=== PATIENT | female | born 1930 | race Caucasian/White ===

== ENCOUNTER 2016-11-16 14:09 | Inpatient (IN) | payer MEDICARE, OTHER ==
[2016-11-16 15:53] LABS: Hematocrit 37 % (35-47); Hemoglobin 11.9 g/dl (12.0-16.0); Mean Corpuscular HGB Conc 32 g/dl (31-36); Mean Corpuscular Hemoglobin 29 pg (27-31); Mean Corpuscular Volume 91 fL (80-97); Mean Platelet Volume 7 um3 (7.4-10.4); Red Blood Count 4.08 10^6/ul (4.0-5.4); Red Cell Distribution Width 16 % (10.5-15); White Blood Count 6.5 10^3/ul (3.5-10.8)
[2016-11-16 16:08] LABS: Urine Bacteria Absent (Absent); Urine Bilirubin Negative (Negative); Urine Glucose Negative (Negative); Urine Nitrite Negative (Negative)
[2016-11-16 16:08] LABS: ALT 8 U/L (7-52); AST 15 U/L (13-39); Albumin 4.3 g/dL (3.2-5.2); Alkaline Phosphatase 104 U/L (34-104); Anion Gap 10 mmol/L (2-11); BUN/Creatinine Ratio 22.4 (8-20); Blood Urea Nitrogen 26 mg/dL (6-24); CO2 Carbon Dioxide 25 mmol/L (22-32); Calcium 9.7 mg/dL (8.6-10.3); Chloride 106 mmol/L (101-111); EGFR African American 56.8 (>60); EGFR Non-African American 44.2 (>60); Globulin 3.3 g/dL (2-4); Glucose 89 mg/dL (70-100); Potassium 4.3 mmol/L (3.5-5.0); Sodium 141 mmol/L (133-145); Total Protein 7.6 g/dL (6.4-8.9)
[2016-11-16 16:19] LABS: Benzodiazepine Urine Screen None Detected (None Detect)
[2016-11-16] MEDS ORDERED: ALPRAZolam TAB* 0.5 MG PO ONE (16:21)
[2016-11-16 16:25] LABS: Acetaminophen < 15 mcg/mL; Alcohol < 10 mg/dL (<10); Salicylate < 2.50 mg/dL (<30)
[2016-11-16 16:35] LABS: TSH (Thyroid Stimulating Horm) 3.94 mcIU/mL (0.34-5.60)
[2016-11-16] MEDS ORDERED: QUEtiapine TAB* 25 MG PO PRN (21:54)
[2016-11-16] MEDS ORDERED: LORazepam TAB(*) 1 MG ONE (22:06)
[2016-11-16] MEDS ORDERED: QUEtiapine TAB* 25 MG ONE (22:06)
[2016-11-16] MEDS ORDERED: LORazepam TAB(*) WAM SCALE 0-6 MG PO SCH (23:00)
[2016-11-16] MEDS ORDERED: LORazepam IM* PER WAM PARAMETERS IM SCH (23:00)
[2016-11-17] MEDS ORDERED: Acetaminophen TAB* 325 MG PO PRN (22:06)
[2016-11-17] MEDS ORDERED: Al Hydrox/Mg Hydrox/Simet LIQ* 30 ML UDC PO PRN (22:06)
[2016-11-17] MEDS: Mirtazapine TAB* 15 MG PO SCH (22:36)
[2016-11-18] MEDS: amLODIPine TAB* 5 MG PO SCH (08:02)
[2016-11-18] MEDS: Vitamin THERAPEUTIC TAB PO SCH (08:03)
[2016-11-18] MEDS: ESCITALOPRAM 10 MG PO SCH (08:19)
--- NOTE | 2016-11-18 14:01 | PN ---
MHU: Group Therapy Note - Service Type Service Type: 31936 Group Psychotherapy - Cognitive Behavioral Group Therapy ( CBT):Patient was attentive and participatory in CBT programming this morning, and remained in good behavioral control. Patient expressed positive insights regarding relevant treatment interventions and goals.
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
[2016-11-18] MEDS: Mirtazapine TAB* 15 MG PO SCH (20:40)
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
[2016-11-19] MEDS: ESCITALOPRAM 10 MG PO SCH (08:56)
[2016-11-19] MEDS: Vitamin THERAPEUTIC TAB PO SCH (08:56)
[2016-11-19] MEDS: amLODIPine TAB* 5 MG PO SCH (08:56)
--- NOTE | 2016-11-19 11:06 | PN ---
MHU: Group Therapy Note - Service Type Service Type: 70368 Group Psychotherapy - Cognitive Behavioral Group Therapy ( CBT):Patient was attentive and participatory in CBT programming this morning, and remained in good behavioral control. Patient expressed positive insights regarding relevant treatment interventions and goals.
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
[2016-11-19] MEDS: Mirtazapine TAB* 15 MG PO SCH ×2 (20:55→21:27)
[2016-11-20] MEDS: Vitamin THERAPEUTIC TAB PO SCH (08:35)
[2016-11-20] MEDS: ESCITALOPRAM 10 MG PO SCH (08:36)
[2016-11-20] MEDS: amLODIPine TAB* 5 MG PO SCH (08:36)
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
--- NOTE | 2016-11-20 14:09 | PN ---
MHU: Group Therapy Note - Service Type Service Type: [id number] Group Psychotherapy - Cognitive Behavioral Group Therapy ( CBT):Patient was attentive and participatory in CBT programming this morning, and remained in good behavioral control. Patient expressed positive insights regarding relevant treatment interventions and goals.
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
[2016-11-20] MEDS: Mirtazapine TAB* 15 MG PO SCH (20:23)
[2016-11-21] MEDS: amLODIPine TAB* 5 MG PO SCH (08:48)
[2016-11-21] MEDS: Vitamin THERAPEUTIC TAB PO SCH (08:48)
[2016-11-21] MEDS: ESCITALOPRAM 10 MG PO SCH (08:48)
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
[2016-11-21] MEDS: Mirtazapine TAB* 15 MG PO SCH (20:33)
[2016-11-22] MEDS: amLODIPine TAB* 5 MG PO SCH (08:23)
[2016-11-22] MEDS: Vitamin THERAPEUTIC TAB PO SCH (08:23)
[2016-11-22] MEDS: ESCITALOPRAM 10 MG PO SCH (08:23)
--- NOTE | 2016-11-22 14:53 | PN ---
MHU: Group Therapy Note - Service Type Service Type: [id number] Group Psychotherapy - Cognitive Behavioral Group Therapy ( CBT):Patient was attentive and participatory in CBT programming this morning, and remained in good behavioral control. Patient expressed positive insights regarding relevant treatment interventions and goals.
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
[2016-11-22] MEDS: Mirtazapine TAB* 15 MG PO SCH (19:55)
[2016-11-23] MEDS: Vitamin THERAPEUTIC TAB PO SCH (08:26)
[2016-11-23] MEDS: amLODIPine TAB* 5 MG PO SCH (08:26)
[2016-11-23] MEDS: ESCITALOPRAM 10 MG PO SCH (08:27)
[2016-11-23] MEDS: Mirtazapine TAB* 15 MG PO SCH (20:52)
[2016-11-24] MEDS: amLODIPine TAB* 5 MG PO SCH (08:13)
[2016-11-24] MEDS: Vitamin THERAPEUTIC TAB PO SCH (08:13)
[2016-11-24] MEDS: ESCITALOPRAM 10 MG PO SCH (08:13)
[2016-11-24] MEDS: Mirtazapine TAB* 15 MG PO SCH (20:11)
[2016-11-25] MEDS: ESCITALOPRAM 10 MG PO SCH (08:16)
[2016-11-25] MEDS: amLODIPine TAB* 5 MG PO SCH (08:17)
[2016-11-25] MEDS: Vitamin THERAPEUTIC TAB PO SCH (08:17)
--- NOTE | 2016-11-25 11:40 | PN ---
MHU: Group Therapy Note - Service Type Service Type: 27243 Group Psychotherapy - Cognitive Behavioral Group Therapy ( CBT):Patient was attentive and participatory in CBT programming this morning, and remained in good behavioral control. Patient expressed positive insights regarding relevant treatment interventions and goals.
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
[2016-11-25] MEDS ORDERED: CMCS: Naltrexone (NF) 50 MG TAB PO ONE (17:48)
[2016-11-25] MEDS ORDERED: Naltrexone (NF) 50 MG TAB PO ONE (18:12)
[2016-11-25] MEDS: Mirtazapine TAB* 15 MG PO SCH (21:23)
[2016-11-26 08:05] VITALS: BP 129/84
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
[2016-11-26] MEDS ORDERED: CMC:Naltrexone (NF) 50 MG TAB PO SCH (09:00)
[2016-11-26] MEDS: amLODIPine TAB* 5 MG PO SCH (09:02)
[2016-11-26] MEDS: ESCITALOPRAM 10 MG PO SCH (09:02)
[2016-11-26] MEDS: Vitamin THERAPEUTIC TAB PO SCH (09:02)
--- NOTE | 2016-11-26 11:23 | PN ---
MHU: Group Therapy Note - Service Type Service Type: 12180 Group Psychotherapy - Cognitive Behavioral Group Therapy ( CBT):Patient was attentive and participatory in CBT programming this morning, and remained in good behavioral control. Patient expressed positive insights regarding relevant treatment interventions and goals.
== END 2016-11-26 13:15 | disposition home or self-care (01) | DRG 881 ==
LOC: ED 14:09 → BSU 11-17 18:43
PROVIDERS: ADMIT Psychiatry & Neurology Psychiatry; ATTEND Psychiatry & Neurology Psychiatry
DX: F32.9 Major depressive disorder, single episode, unspecified (principal); I10 Essential (primary) hypertension; F10.10 Alcohol abuse, uncomplicated; Y90.0 Blood alcohol level of less than 20 mg/100 ml; Z86.711 Personal history of pulmonary embolism
CPT/HCPCS: 36415; 80053; 80307; 80320; 80329; 81003; 81015; 84443; 85025; 90853; 99222; 99231; 99232; 99233; A9270-GY; G0480

== ENCOUNTER 2018-03-23 10:21 | Observation (INO) | payer MEDICARE, OTHER ==
[2018-03-23] MEDS ORDERED: clonazePAM TAB(*) 0.5 MG PO PRN (11:20)
[2018-03-23] MEDS: amLODIPine TAB* 5 MG PO SCH (12:15)
[2018-03-23] MEDS: Cholecalciferol TAB* 1000 UNITS PO SCH (12:15)
[2018-03-23] MEDS: Mirtazapine TAB* 15 MG PO SCH (12:16)
[2018-03-23] MEDS: Citalopram TAB* 20 MG PO SCH (12:16)
[2018-03-23] MEDS: Pantoprazole IV* 40 MG IV SCH (12:19)
[2018-03-23] MEDS ORDERED: fentaNYL* 50 MCG/ML 2 ML VIAL (100 MCG VIAL) ONE (14:00)
[2018-03-23] MEDS ORDERED: Midazolam* 1 MG/ML 10 ML VIAL (10 MG) ONE (14:00)
[2018-03-23 14:15] LABS: EGFR Non-African American 32.3 (>60)
[2018-03-23 14:46] LABS: Hematocrit 21 % (35-47); Hemoglobin 6.3 g/dl (12.0-16.0); Mean Corpuscular HGB Conc 31 g/dl (31-36); Mean Corpuscular Hemoglobin 22 pg (27-31); Mean Corpuscular Volume 71 fL (80-97); Mean Platelet Volume 6.9 um3 (7.4-10.4); Platelet Count 264 10^3/ul (150-450); Red Cell Distribution Width 19 % (10.5-15); White Blood Count 4.6 10^3/ul (3.5-10.8)
--- NOTE | 2018-03-23 17:56 | HP ---
HISTORY AND PHYSICAL: DATE OF ADMISSION: 03/23/18. HISTORY OF PRESENT ILLNESS: Norma Osuna is an 87-year-old woman admitted with anemia due to GI bleeding. The patient presented to my office a few weeks ago with weakness and shortness of breath. A workup at that time revealed moderate aortic stenosis. Labs were done showing an iron-deficiency anemia. She initially did not agree to admission, but now at this time does agree to admission for workup and transfusion. PAST MEDICAL HISTORY: The patient's past medical history significant for the following medical problems. 1. Hypertension. 2. History of pulmonary emboli for which she was on Coumadin, but this was stopped due to noncompliance. 3. History of depression. 4. History of alcohol abuse. 5. Gastroesophageal reflux disease with a history of erosive esophagitis in 2000 and hiatus hernia. 6. Diverticulosis. 7. Varicose veins. 8. Hyperlipidemia. 9. Osteoarthritis. 10. History of low back pain. 11. Menopausal syndrome. 12. History of uterine fibroids. 13. History of rotated cuff tears in the shoulders for which she has been taking chronic naproxen. PAST SURGICAL HISTORY: Includes: 1. LRTI arthroplasty left thumb (ligament reconstruction) for arthritis with subluxation, tendon interposition. 2. Cholecystectomy. 3. Tonsillectomy and adenoidectomy. 4. Varicose vein stripping. MEDICATIONS: Current medications are as follows: 1. Amlodipine 5 mg daily. 2. Vitamin D 1000 units daily. 3. Klonopin 0.5 mg p.o. q 12 h. p.r.n. anxiety. 4. Mirtazapine 15 mg daily. 5. Naproxen 375 mg daily. 6. Prilosec 20 mg daily. 7. Lexapro 10 mg daily ALLERGIES: CIPRO and LISINOPRIL. CIPRO caused nausea and vomiting. LISINOPRIL caused a cough. FAMILY HISTORY: Positive for stomach cancer, breast cancer, heart disease. Her mother had a pacemaker. HABITS: Tobacco none. She is a former smoker. EtOH: The patient has had a problem with alcohol abuse in the past. At present, she admits to drinking 3 drinks per day. SOCIAL AND PERSONAL HISTORY: The patient is . Her has dementia. She is retired. She has an adult daughter, who lives in [place], who comes to her appointment today. REVIEW OF SYSTEMS: She has been feeling somewhat tired at times. Her appetite is okay, but her daughter says she does not eat much, tends to drink soda and drink alcohol. She did say she went out for [place] food last night. Her weight has actually gone up due to swelling lately. Skin: She has had bruises on her arms recently. She has not fallen. HEENT: Negative. Nodes: Negative. Heme: See above. Endocrine: Negative. Breasts: Negative. Respiratory: She has had dyspnea on exertion recently. Cardiovascular: History of hypertension. She denies chest pain at present but a few weeks ago complained of R lateral chest pain for a few days. . She was found to have moderate aortic stenosis on recent echo. GI: She had heartburn a few weeks ago at which time she started on Prilosec. She denies nausea, vomiting, abdominal pain, dark stools. She states her bowel movements have been normal. : She has an overactive bladder for which she has tried various medications in the past. Musculoskeletal: Negative. Neuro: She does have a history of headaches. PHYSICAL EXAMINATION GENERAL: She is an elderly pale white female. Quite distraught about the thought of coming into the hospital. Initially refused, but then agreed. VITAL SIGNS: Blood pressure 132/64, pulse 70, respirations 20, temperature 98 degrees Fahrenheit, O2 sat of 100% on room air. SKIN: Skin is pale. She has ecchymosis on her upper extremities. HEENT: Atraumatic, normocephalic. Full EOMs. Mouth: Pharynx shows pale mucous membranes. Conjunctival membranes are pale. Mucous membranes are pale. NECK: Supple. LUNGS: Chest is clear. HEART: Normal S1, S2 with a grade 2-3/6 systolic murmur at the base. ABDOMEN: Soft, nontender. There are no masses or organomegaly. Bowel sounds are active. EXTREMITIES: Show 1+ pedal edema. NEUROLOGIC: Without gross focal or lateralizing signs. RECTAL: Exam showed no masses. Stool was dark brown, guaiac positive. DIAGNOSTIC STUDIES/LAB DATA: Laboratory: CBC on 03/10/18, WBC 5.1, H and H 7/ 23, MCV 72, PLT 299 K. CBC on 03/21/18, WBC 5.9, H and H 6.9/23, MCV 71, PLT 320 K. CBC today on 03/23/18, WBC 4.6, H and H 6.3/21, MCV 71, PLT 264 K. Chemistries done on 03/10/18, showed sodium 141, potassium 4.7, chloride 111, CO2 of 21, BUN and creatinine 39/1.82, glucose 80, calcium 9.1. Rest of the comprehensive metabolic panel was within normal limits except for a protein of 6.3, BNP on 03/10/18 was 416. On 03/21/18, chemistries showed sodium 142, potassium 4.9, chloride 109, CO2 of 24, BUN and creatinine 36/1.78, glucose 100 , magnesium 1.8, iron 15, TIBC 643, percent saturation 2%, ferritin 9.7. On , sodium 140, potassium 4.6, chloride 110, creatinine 1.52, glucose 90. Rest of the comprehensive metabolic panel was essentially within normal limits except for total protein of 6.1. IMPRESSION AND PLAN: The patient with guaiac positive stools and iron- deficiency anemia in the setting of chronic naproxen therapy. I will be admitting her for blood transfusion, gastrointestinal consult for probable EGD. The patient is DNR per her wishes. MOLST form is completed. This was done in the presence of her daughter. [id number]/[facility] #: [id number] MTDD
[2018-03-24 07:13] LABS: Hematocrit 27 % (35-47); Hemoglobin 8.4 g/dl (12.0-16.0); Mean Corpuscular HGB Conc 31 g/dl (31-36); Mean Corpuscular Hemoglobin 23 pg (27-31); Mean Corpuscular Volume 74 fL (80-97); Mean Platelet Volume 6.2 um3 (7.4-10.4); Platelet Count 234 10^3/ul (150-450); Red Blood Count 3.64 10^6/ul (4.00-5.40); Red Cell Distribution Width 20 % (10.5-15); White Blood Count 5.5 10^3/ul (3.5-10.8)
[2018-03-24 07:14] LABS: EGFR Non-African American 30.6 (>60)
[2018-03-24 07:20] VITALS: BP 159/85
[2018-03-24] MEDS: Mirtazapine TAB* 15 MG PO SCH (08:45)
[2018-03-24] MEDS: Pantoprazole IV* 40 MG IV SCH (08:45)
[2018-03-24] MEDS: Cholecalciferol TAB* 1000 UNITS PO SCH (08:45)
[2018-03-24] MEDS: amLODIPine TAB* 5 MG PO SCH (08:45)
[2018-03-24] MEDS: Citalopram TAB* 20 MG PO SCH (08:45)
--- NOTE | 2018-03-24 12:50 | HP ---
ADDENDUM: PREVIOUS MEDICAL PROBLEMS: Aortic stenosis. [id number]/[facility] #: [id number] MTDCharli
--- NOTE | 2018-03-24 16:01 | DS ---
CC: Dr. Anish Kate * DISCHARGE SUMMARY: DATE OF ADMISSION: 03/23/18 DATE OF DISCHARGE: 03/24/18. DISCHARGE DIAGNOSES: 1. Iron deficiency anemia due to gastrointestinal bleeding. 2. Jasvir's ulcers and duodenal ulcer, hiatus hernia. 3. Alcohol abuse. 4. Hypertension. 5. Depression. 6. History of pulmonary emboli. 7. Aortic stenosis. 8. Guaiac-positive stool. 9. Chronic kidney disease stage 3. HISTORY: Norma Osuna is an 87-year-old woman admitted with shortness of breath, leg swelling, iron deficiency anemia. Please see the dictated admission note for the details of the present illness, past medical history, family history, social and personal history, review of systems, physical examination. LABORATORY DATA: CBC: WBC 4.6, H and H 6.3/, MCV 71, PLT 264K. Repeat CBC on 03/24/18 after transfusion, WBC 5.5, H and H 8.4/, PLT 234K. Chemistries on admission: Sodium 140, potassium 4.6, chloride 110, CO2 23, BUN and creatinine 34/1.52, glucose 90. Rest of the comprehensive metabolic panel is within normal except for a total protein of 6.1. Repeat labs on 03/24/18 essentially unchanged. CLOtest negative. EGD on 03/23/18 showed large hiatus hernia, Jasvir's ulcers nonbleeding, nonbleeding duodenal ulcer. HOSPITAL COURSE: The patient was admitted. She was transfused 2 units of packed red blood cells. She underwent an endoscopy as noted above. She was found to have Jasvir's ulcers and a duodenal ulcer. She was treated with pantoprazole 40 mg IV daily. At the time of discharge, she is to be on a regular diet. No alcohol. Activity as tolerated. MEDICATIONS: 1. Prilosec 20 mg twice a day. 2. Citalopram 10 mg once a day. 3. Amlodipine 5 mg once a day. 4. Ferrous sulfate with vitamin C 1 pill every other day. 5. Vitamin D 1000 units daily. 6. Clonazepam 0.5 mg twice a day as needed for anxiety. 7. Mirtazapine 15 mg once a day. 8. Tylenol Arthritis 650 two pills once a day. 9. Naltrexone 50 mg once a day. She was told to take no aspirin, no naproxen, no ibuprofen, to drink no alcohol. She is to have a CBC and a return visit with me in a week.She will have an endoscopy with Dr. Kate in about 6 weeks. [id number]/[facility] #: [id number] ARTI
--- NOTE | 2018-03-26 16:46 | CONS ---
CC: Dr. Bob * CONSULTATION REPORT: DATE OF CONSULT: 03/23/18 REFERRING PHYSICIAN: Dr. Bob. INDICATION: Melena. NARRATIVE: Ms. Osuna is a pleasant 87-year-old female who was directly admitted from Dr. Bob's office for anemia and melena. She states that she has been having worsening weakness and some shortness of breath. She did have labs a few days ago, which showed a declining hemoglobin. She had repeat labs this morning, which showed a worsening anemia. She states that she does feel weak and tired. She does use nonsteroidals on a regular basis. She also uses alcohol on a regular basis. She states that her stools have been dark, but denies any abdominal pain. PAST MEDICAL HISTORY: Significant for aortic stenosis, depression, pulmonary emboli, hypertension, diverticulosis, hyperlipidemia. PAST SURGICAL HISTORY: Surgical history includes orthopedic surgeries on her thumb, cholecystectomy. MEDICATIONS UPON ADMISSION: Include, 1. Amlodipine. 2. Klonopin. 3. Naproxen. 4. Prilosec. 5. Lexapro. ALLERGIES: To LISINOPRIL and CIPRO. FAMILY HISTORY: Significant for stomach cancer, breast cancer, coronary artery disease. SOCIAL HISTORY: No tobacco. She drinks 4 rum and cokes per day. REVIEW OF SYSTEMS: Twelve systems were reviewed and other than that mentioned in the HPI were unremarkable. PHYSICAL EXAM: Temperature is 98.1, blood pressure is 127/64, pulse is 64, respiratory rate of 18, O2 sat is 98%. General: An elderly-appearing female, who appears her stated age. Alert, oriented, pleasant, and fluent. HEENT: Mucous membranes are moist without lesions, ulcers, or exudate. Neck is supple. Trachea is midline. Head is normocephalic, atraumatic. Heart: Regular rate and rhythm. No murmurs, rubs, or gallops. Lungs: Clear to auscultation bilaterally. No wheezes, rales, or rhonchi. Abdomen: Obese. Positive bowel sounds. Soft, nontender, nondistended. No hepatosplenomegaly, masses, rebound or guarding. Skin is warm and dry. DIAGNOSTIC STUDIES/LAB DATA: Of note, white count is 4.6, hemoglobin of 6.3, platelets of 264. Sodium is 140. BUN 34, creatinine is 1.52. Albumin is 4.0. ASSESSMENT AND PLAN: A pleasant 87-year-old female, who takes nonsteroidals, has black stools and anemic. I do wonder about peptic ulcer disease. She should continue with her PPI. I would like to make arrangements for her EGD later on this afternoon. [id number]/[facility] #: [id number] ARTI
--- NOTE | 2018-03-27 03:35 | PRO ---
CC: Dr. Diane Bob. * DATE OF PROCEDURE: 03/23/18 - ROOM #[id number] PROCEDURE: EGD. INDICATION: Anemia, melena. REFERRING PHYSICIAN: Dr. Diane Bob. MEDICATIONS GIVEN: 75 mcg IV Fentanyl, 4 mg IV Versed. PROCEDURE IN DETAIL: After the EGD procedure including the risks, benefits, and alternatives not limited to perforation, surgery, and/or were explained to Mrs. Osuna and her daughter. Written consent was then obtained , IV medication was given, and a bite block was placed between the teeth. Olympus gastroscope was then inserted into the patient's mouth, advanced down the esophagus, into the stomach, and into the distal duodenum. In the esophagus at the GE junction, Z-line was intact. No erosive esophagitis, stricture, or ring was seen. She does have a large hiatal hernia. Scope was advanced through the GE junction, through the hiatal hernia sac, into the body of the stomach. Within the hiatal hernia sac, there were at least 3 long linear Jasvir's ulcers. The scope was advanced to the distal stomach. Biopsy was taken for H. Pylori. The scope was advanced through the widely patent pylorus into the duodenal bulb, into the distal duodenum. In the duodenal bulb , there was a small ulcer, nonbleeding. The Jasvir's ulcers were also nonbleeding. The scope was then withdrawn from the patient, she tolerated the procedure well and was returned to the recovery room in stable condition. IMPRESSION: 1. Complete upper endoscopy into the distal duodenum with biopsies. 2. Large hiatal hernia. 3. Jasvir's ulcers status post nonbleeding. 4. Duodenal ulcer status post biopsy for Helicobacter pylori. 5. The ulcer in her duodenum may be secondary to nonsteroidal use or Helicobacter pylori. I will follow up with the Helicobacter pylori biopsy. She should avoid all nonsteroidals. 6. The Jasvir's ulcers are going to be more difficult to treat. They are traumatic induced or trauma-induced ulceration. I would recommend that she remain on twice a day PPI and I would like to perform another upper endoscopy in approximately 6 weeks from now to confirm healing or improvement of her ulcers. This was discussed with Dr. Diane Bob. [id number]/[facility] #: [id number] [facility]
== END 2018-03-24 11:50 | disposition home or self-care (01) ==
LOC: MED 10:51 → INTOOBSV 10:51
PROVIDERS: ADMIT Internal Medicine Geriatric Medicine; ATTEND Internal Medicine Geriatric Medicine
DX: D50.0 Iron deficiency anemia secondary to blood loss (chronic) (principal); K92.2 Gastrointestinal hemorrhage, unspecified; K27.1 Acute peptic ulcer, site unspecified, with perforation; F10.10 Alcohol abuse, uncomplicated; I10 Essential (primary) hypertension; F32.9 Major depressive disorder, single episode, unspecified; Z86.711 Personal history of pulmonary embolism; I35.0 Nonrheumatic aortic (valve) stenosis; N18.3 Chronic kidney disease, stage 3 (moderate); F19.10 Other psychoactive substance abuse, uncomplicated; K21.9 Gastro-esophageal reflux disease without esophagitis; K57.90 Diverticulosis of intestine, part unspecified, without perforation or abscess without bleeding; N95.1 Menopausal and female climacteric states; Z87.42 Personal history of other diseases of the female genital tract; R19.5 Other fecal abnormalities
CPT/HCPCS: 36415; 36430; 80048; 80053; 82728; 83540; 83550; 83735; 83921; 85027; 86850; 86900; 86901; 86922; 87077; 96365; 99156; 99157; A9270-GY; G0378; J2250; J3010; P9040